=== PATIENT | male | born 1945 | race Caucasian/White ===

== ENCOUNTER 2017-05-07 09:48 | Emergency (ER) | payer MEDICARE, OTHER ==
--- NOTE | 2017-05-07 11:19 | ER Document Report ---
ED Medical Screen (RME) - General Chief Complaint: Testicular Swelling Stated Complaint: LOWER ABDOMINAL PAIN Time Seen by Provider: 05/07/17 10:39 Mode of Arrival: Ambulatory Information source: Patient Notes: Patient reports extensive testicular swelling for the last 2 or 3 days. Patient states he has had this problem before and his urologist is out of town. Patient states that he had an operation done in which 1801-2342 cc of fluid was removed from his scrotum. TRAVEL OUTSIDE OF THE [place] IN LAST 30 DAYS: No - Related Data Allergies/Adverse Reactions: No Known Allergies Allergy (Verified 05/07/17 10:19) Past Medical History - Social History Chew tobacco use (# tins/day): No Frequency of alcohol use: None Drug Abuse: None Lives with: Family Family history: Reviewed & Not Pertinent - Past Medical History Cardiac Medical History: Reports: Hx Hypertension Pulmonary Medical History: Reports: Hx Asthma, Hx COPD Endocrine Medical History: Reports: Hx Diabetes Mellitus Type 2 Psychiatric Medical History: Reports: Hx Depression Past Surgical History: Reports: Hx Orthopedic Surgery - Immunizations Hx Diphtheria, Pertussis, Tetanus Vaccination: Yes Review of Systems - Review of Systems Male Genitourinary: See HPI, Testicular pain - with swelling Physical Exam - Vital signs Vitals: Temp Pulse Resp BP Pulse Ox 97.9 F 82 18 152/70 H 94 05/07/17 10:01 05/07/17 10:01 05/07/17 10:01 05/07/17 10:01 05/07/17 10:01 - Notes Notes: Physical Exam: General: Alert, appears well. HEENT: Normocephalic. Atraumatic. PERRLA. Extraocular movements intact. Oropharynx clear. Neck: Supple. Respiratory: No respiratory distress. Abdominal: Normal Inspection. No distension. Male Genitourinary: Extensive testicular swelling Extremities: Moves all four extremities. Neurological: Normal cognition. AAOx4. Normal speech. Psychological: Normal affect. Normal Mood. Skin: Warm. Dry. Normal color. Course - Vital Signs Vital signs: Temp Pulse Resp BP Pulse Ox 97.9 F 82 18 152/70 H 94 05/07/17 10:01 05/07/17 10:01 05/07/17 10:01 05/07/17 10:01 05/07/17 10:01 Scribe Documentation - Scribe Written by Scribe:: Geovanny Hopkins, 05/07/2017 1120 acting as scribe for :: Lani
[2017-05-07 11:39] LABS: ABSOLUTE BASOPHILS # (AUTO) 0.1 10^3/uL (0.0-0.2); ABSOLUTE EOSINOPHILS # (AUTO) 0.4 10^3/uL (0.0-0.6); ABSOLUTE MONOCYTES (AUTO) 1.1 10^3/uL (0.1-1.4); ABSOLUTE NEUT (AUTO) 4.7 10^3/uL (1.7-8.2); EOSINOPHILS % (AUTO) 5.7 % (0-6); HEMOGLOBIN 12.8 g/dL (13.5-17.0); HGB HCT DIFFERENCE -0.6; LYMPHOCYTES % (AUTO) 13.3 % (13-45); MEAN CORPUSCULAR HEMOGLOBIN 29.1 pg (27.0-33.4); MEAN CORPUSCULAR HGB CONC 32.9 g/dL (32.0-36.0); MEAN CORPUSCULAR VOLUME 88 fl (80-97); MONOCYTES % (AUTO) 15.4 % (3-13); RED BLOOD COUNT 4.42 10^6/uL (4.35-5.55); RED CELL DISTRIBUTION WIDTH 15.2 % (11.5-14.0); SEGMENTED NEUTROPHILS % (AUTO) 64.6 % (42-78); WHITE BLOOD COUNT 7.3 10^3/uL (4.0-10.5)
--- NOTE | 2017-05-07 11:58 | ER Document Report ---
ED General - General Chief Complaint: Testicular Swelling Stated Complaint: LOWER ABDOMINAL PAIN Time Seen by Provider: 05/07/17 10:39 Mode of Arrival: Ambulatory TRAVEL OUTSIDE OF THE [place] IN LAST 30 DAYS: No - HPI Notes: Patient is a 72-year-old male with a history of diabetes, ?prostate CA, and COPD who presents the ED complaining of swelling and fluid buildup in his scrotum. Patient states that he has had issues with this for 3 years, but over the last couple days the swelling has doubled in size. Patient states that he was diagnosed with a hydrocele in 2014 and had it surgically removed in about 1 L of fluid was taken out as well. Patient has been following regularly with a urologist who is based at [facility], Dr. Melton. Patient states that they have not placed him on Lasix which have not been helping the fluid buildup in his scrotum. Otherwise, he is still eating and drinking without any difficulties. He does continue to urinate normally and having normal bowel movements; although, he cannot physically see or feel his penis bc it is engulfed in the swelling at this time. Patient is accompanied by his grandson and his with his son on the phone. No other concerns or complaints at this time. Denies any headache, fever, neck pain, URI, sore throat, chest pain , palpitations, syncope, cough, shortness of breath, wheeze, dyspnea, abdominal pain, nausea/vomiting/diarrhea, urinary retention, hematuria, loss of control of bowel or bladder, numbness/tingling, saddle anesthesia, muscle paralysis/ weakness, or rash. - Related Data Allergies/Adverse Reactions: No Known Allergies Allergy (Verified 05/07/17 10:19) Home Medications: Current Home Medications Ipratropium/Albuterol Sulfate [Duoneb 3 ml Ampul] 3 ml NEB [id number] PRN 05/07/17 [ History] Metformin HCl [Metformin HCl ER] 500 mg PO BID 05/07/17 [History] Omeprazole 40 mg PO DAILY 05/07/17 [History] Oxycodone HCl/Acetaminophen [Percocet 7.5-325 mg Tablet] 1 tab PO DAILYP PRN [History] Past Medical History - General Information source: Patient - Social History Smoking Status: Never Smoker Chew tobacco use (# tins/day): No Frequency of alcohol use: None Drug Abuse: None Lives with: Family Family History: Reviewed & Not Pertinent Patient has suicidal ideation: No Patient has homicidal ideation: No - Past Medical History Cardiac Medical History: Reports: Hx Hypertension Pulmonary Medical History: Reports: Hx Asthma, Hx COPD Endocrine Medical History: Reports: Hx Diabetes Mellitus Type 2 Renal/ Medical History: Denies: Hx Peritoneal Dialysis Psychiatric Medical History: Reports: Hx Depression Past Surgical History: Reports: Hx Orthopedic Surgery - Immunizations Hx Diphtheria, Pertussis, Tetanus Vaccination: Yes Hx Pneumococcal Vaccination: 05/26/13 Review of Systems - Review of Systems Notes: REVIEW OF SYSTEMS: CONSTITUTIONAL : Denies fever, chills, or sweats. Denies recent illness. EENT: Denies eye, ear, throat, or mouth pain or symptoms. Denies nasal or sinus congestion or discharge. Denies throat, tongue, or mouth swelling or difficulty swallowing. CARDIOVASCULAR: Denies chest pain. Denies palpitations or racing or irregular heart beat. Denies ankle edema. RESPIRATORY: Denies cough, cold, or chest congestion. Denies shortness of breath, difficulty breathing, or wheezing. GASTROINTESTINAL: Denies abdominal pain or distention. Denies nausea, vomiting , or diarrhea. Denies blood in vomitus, stools, or per rectum. Denies black, tarry stools. Denies constipation. GENITOURINARY: see hpi MUSCULOSKELETAL: Denies back or neck pain or stiffness. Denies joint pain or swelling. SKIN: Denies rash, lesions or sores. NEUROLOGICAL: Denies confusion or altered mental status. Denies passing out or loss of consciousness. Denies dizziness or lightheadedness. Denies headache. Denies weakness or paralysis or loss of use of either side. Denies problems with gait or speech. Denies sensory loss, numbness, or tingling. Denies seizures. PSYCHIATRIC: Denies anxiety or stress. Denies depression, suicidal ideation, or homicidal ideation. ALL OTHER SYSTEMS REVIEWED AND NEGATIVE. Dictation was performed using [employer] voice recognition software Physical Exam - Vital signs Vitals: Temp Pulse Resp BP Pulse Ox 97.9 F 82 18 152/70 H 94 05/07/17 10:01 05/07/17 10:01 05/07/17 10:01 05/07/17 10:01 05/07/17 10:01 Notes: PHYSICAL EXAMINATION: GENERAL: Well-appearing, well-nourished and in no acute distress. Obese. LUNGS: Breath sounds clear to auscultation bilaterally and equal. No wheezes rales or rhonchi. HEART: Regular rate and rhythm without murmurs, rubs, gallops. ABDOMEN: Soft, nontender, nondistended abdomen. No guarding, no rebound. No masses appreciated. Normal bowel sounds present. No CVA tenderness bilaterally. : Grapefruit sized scrotum that is soft but firm to palpate. Unable to palpate testicles. Penis engulfed in swelling. Pt describes this as the same type of swelling over last 3yrs. Musculoskeletal: FROM to passive/active. Strength 5+/5. Extremities: 2+ edema b/l LE: Peripheral pulses 2+. Capillary refill less than 3 seconds. NEUROLOGICAL: Normal speech, ataxic gait & ambulates with SPC. Normal sensory, motor exams PSYCH: Normal mood, normal affect. SKIN: Warm, Dry, normal turgor, no rashes or lesions noted. Course - Re-evaluation Re-evalutation: 05/07/17 14:13 Tried to have [facility] call me back- never got back to me 05/07/17 13:[address] Harper (our Uro): Recommended Najera placement to aide with use of his Lasix at home as there is nothing they can really do for the swelling as it sounds to be lymphatic. Recheck with Urology next week either with his clinic or patient's. Reviewed with patient who is in agreement with plan 05/07/17 16:02 Unable to get Najera placed. Pt to try lasix as able and use a bedside commode if able Recheck with Urology next week Vitals stable. PE otherwise unremarkable. Low suspicion for any other emergent condition at this time. Recheck with PCM next week Return to the ED with any worsening symptoms and/or development of fever, headache, chest pain, palpitations, syncope, shortness of breath, trouble breathing, abdominal pain, n/v/d, blood in stool/urine, urinary retention, or other worsening symptoms that are concerning to you. - Vital Signs Vital signs: Temp Pulse Resp BP Pulse Ox 97.6 F 73 18 140/61 H 97 05/07/17 14:47 05/07/17 14:47 05/07/17 10:01 05/07/17 14:47 05/07/17 14:47 - Laboratory Result Diagrams: 05/07/17 11:10 05/07/17 11:10 Laboratory results interpreted by me: 05/07/17 05/07/17 11:10 13:09 Hgb 12.8 L RDW 15.2 H Monocytes % 15.4 H Urine Protein 30 H Urine Blood MODERATE H Urine Urobilinogen 2.0 H Discharge - Discharge Clinical Impression: Enlargement of scrotal sac Condition: Stable Disposition: HOME, SELF-CARE Instructions: Najera Catheter Care ([facility]), Follow-Up Care ([facility]) Additional Instructions: Take lasix as directed Elevate your scrotum and LE's regularly Take home medications as directed Recheck with your Urologist and/or [facility] for recheck early next week* F/u: with your PCM in 1 week Return to the ED with any worsening symptoms and/or development of fever, headache, chest pain, palpitations, syncope, shortness of breath, trouble breathing, abdominal pain, n/v/d, blood in stool/urine, urinary retention, or other worsening symptoms that are concerning to you. Forms: Elevated Blood Pressure Referrals: VARSHA ROBLES MD [Primary Care Provider] - Follow up in 1 week ENID ATKINSON MD [NO LOCAL MD] - 05/10/17 [facility] [Provider Group] - 05/10/17
[2017-05-07 12:00] LABS: ALANINE AMINOTRANSFERASE 33 U/L (21-72); ALBUMIN 4.4 g/dL (3.5-5.0); ALKALINE PHOSPHATASE 100 U/L (38-126); ANION GAP 15 (5-19); ASPARTATE AMINO TRANSFERASE 37 U/L (17-59); BILIRUBIN,DIRECT 0.4 mg/dL (0.0-0.4); BILIRUBIN,TOTAL 0.7 mg/dL (0.2-1.3); BLOOD UREA NITROGEN 19 mg/dL (7-20); CALCIUM 9.4 mg/dL (8.4-10.2); CARBON DIOXIDE 25 mmol/L (22-30); CHLORIDE 105 mmol/L (98-107); CREATININE RESULT 1.01 mg/dL (0.52-1.25); GLUCOSE 95 mg/dL (75-110); POTASSIUM 4.5 mmol/L (3.6-5.0); SODIUM 144.7 mmol/L (137-145); TOTAL PROTEIN 7.6 g/dL (6.3-8.2)
--- NOTE | 2017-05-07 12:25 | RADIOLOGY REPORT (SQ) ---
EXAM DESCRIPTION: U/S SCROTUM W/DOPPLER COMPLETED DATE/TIME: 05/07/2017 12:15 pm REASON FOR STUDY: extensive swelling COMPARISON: SCROTAL ULTRASOUND 11/09/2014, 05/20/2015 TECHNIQUE: Static and realtime yang scale imaging of the scrotum and testes. Selected color Doppler and spectral images recorded to document blood flow. LIMITATIONS: Massive scrotal swelling FINDINGS: The scrotum is massively enlarged. There is diffuse interstitial fluid throughout the rig ht and left hemiscrotum. On the right side, the testicle measures 5 x 4 x 3 cm in size with a small adjacent loculated hydroce le 6 x 3 x 4 cm size. We were unable to document color flow or arterial/venous spectral waveforms in the right testicle. It is unclear whether this is due to technical limitations or true absence of b lood flow. On the left side, the testicle measures 4.5 x 3.7 x 2.5 cm in size. No left hydrocele. We were unab le to document color flow or arterial/venous spectral waveforms in the left testicle. It is unclear whether this is due to technical limitations or true absence of blood flow. Findings and limitations of this study were discussed with Dr. Vance in the emergency room, [id number] ho urs 05/07/2017 IMPRESSION: Massive interstitial edema throughout the scrotum similar compared to studies from 2015. Small right hydrocele Echogenic testicles. Unable to demonstrate color flow or spectral waveforms today within the testes. TECHNICAL DOCUMENTATION: JOB ID: [id number]- All Rights Reserved
--- NOTE | 2017-05-07 12:56 | EKG REPORT ---
SEVERITY:- NORMAL ECG - SINUS RHYTHM : Confirmed by: Ihs Louis MD 07-May-2017 12:55:24
--- NOTE | 2017-05-07 12:58 | EKG REPORT ---
SEVERITY:- DEFECTIVE ECG - SINUS RHYTHM NONSPECIFIC INTRAVENTRICULAR CONDUCTION DELAY CONSIDER POSTERIOR WALL INVOLVEMENT : Confirmed by: Ish Louis MD 07-May-2017 12:56:59
[2017-05-07 13:25] LABS: APPEARANCE,URINE SLIGHTLY-CLOUDY; BILIRUBIN,URINE NEGATIVE (NEGATIVE); GLUCOSE, URINE NEGATIVE (NEGATIVE); KETONES,URINE NEGATIVE (NEGATIVE); LEUKOCYTE ESTERASE,URINE NEGATIVE (NEGATIVE); NITRITE,URINE NEGATIVE (NEGATIVE); PROTEIN,URINE 30 mg/dL (NEGATIVE); URINE SPECIFIC GRAVITY 1.029
[2017-05-07 16:32] VITALS: BP 157/73
== END 2017-05-07 17:05 | disposition home or self-care (01) ==
LOC: ER 09:48
DX: N50.89 Other specified disorders of the male genital organs (principal); R10.30 Lower abdominal pain, unspecified; E11.9 Type 2 diabetes mellitus without complications; J44.9 Chronic obstructive pulmonary disease, unspecified; I10 Essential (primary) hypertension
CPT/HCPCS: 36415; 51702; 76870; 80053; 81001; 83880; 85025; 93005; 93010; 93976; 99284